=== PATIENT | female | born 1960 | race Caucasian/White ===

== ENCOUNTER → 2016-09-24 | Outpatient (CLI) | payer OTHER ==
[~2016-09-24] MED LIST: ACET325T96 PO; AMOX875T PO; BUPR-79 PO; CHLO25CA10 PO; CLON0.5T3 PO; FLUO20CA35 PO; IBUP-1050 PO; MCRK/10 PO; TRAZ100T29 PO; WELLBUTRIN PO
== END | disposition home or self-care (01) ==
LOC: C.LAB 15:09
DX: Z02.83 Encounter for blood-alcohol and blood-drug test (principal)

== ENCOUNTER 2016-10-09 21:55 | Emergency (ER) | payer OTHER ==
[~2016-10-09] VITALS: Ht 172.7 cm; Wt 72.2 kg
[~2016-10-09 21:55] MED LIST changes: -ACET325T96 PO; -AMOX875T PO; -BUPR-79 PO; -CHLO25CA10 PO; -CLON0.5T3 PO; -FLUO20CA35 PO; -IBUP-1050 PO; -MCRK/10 PO; -TRAZ100T29 PO
[2016-10-09 22:05] VITALS: TEMP 36.7; Ht 172.7 cm; Wt 72.2 kg
[2016-10-09] MEDS ORDERED: SODIUM CHLORIDE 0.9% 1000ML 1,000 ML IV STA (22:46)
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
[2016-10-09 22:55] LABS: BASO % 0.2 %; BASO ABS # 0.02 K/uL (0-0.2); COMPLETE YES; EOS % 0.6 %; HEMATOCRIT 38.8 % (37-47); IG% 0.5 %; LYMPH % 37.4 %; LYMPH ABS # 4.73 K/uL (1.2-3.4); MEAN CELL VOLUME 89.4 fL (80-100); MEAN CORPUSCULAR HEMOGLOBIN 32.3 pg (25-34); MEAN CORPUSCULAR HGB CONC 36.1 g/dl (32-36); MEAN PLATELET VOLUME 9.4 fL (7.4-10.4); MONO % 5.5 %; NEUT % 55.8 %; PLATELET COUNT 323 K/uL (130-400); RED BLOOD COUNT 4.34 M/uL (4.2-5.4); WHITE BLOOD COUNT 12.66 K/uL (4.8-10.8)
[2016-10-09] MEDS ORDERED: OPTIRAY 320 IV PRN (23:00)
[2016-10-09 23:04] LABS: ACETAMINOPHEN < 2 ug/ml (10-30)
[2016-10-09] MEDS ORDERED: IBUP-1050 PO (23:04)
[2016-10-09] MEDS ORDERED: CLON0.5T3 PO (23:04)
[2016-10-09 23:06] LABS: BUN/CREATININE RATIO 22.1 (10-20); CALCIUM 9.5 mg/dl (8.5-10.1); CREATININE 0.66 mg/dl (0.60-1.20); MAGNESIUM 1.9 mg/dl (1.8-2.4)
[2016-10-09 23:07] LABS: POTASSIUM 2.4 mmol/L (3.5-5.1)
[2016-10-09] MEDS ORDERED: POTASSIUM CHLORIDE 10 MEQ TABCR PO STA (23:29)
[2016-10-09] MEDS ORDERED: POTASSIUM CHLORIDE 10 MEQ / 100ML WTR IV STA (23:29)
[2016-10-09] MEDS ORDERED: MULTI-VITAMIN INFUSION INJ 10 ML, THIAMINE HCL INJ 100 MG, FoLIC ACID INJ 1 MG in SODIU... IV ONE (23:30)
[2016-10-09 23:47] LABS: PARTIAL THROMBOPLASTIN RATIO 0.9; PROTHROMBIN TIME (PATIENT) 10.3 SECONDS (9.0-12.0)
[2016-10-10] MEDS ORDERED: MCRK/10 PO (01:07)
[2016-10-10 01:48] LABS: URINE APPEARANCE CLEAR (CLEAR); URINE BILIRUBIN NEG (NEG); URINE COLOR YELLOW; URINE NITRITE NEG (NEG); URINE SPECIFIC GRAVITY > 1.045 (1.000-1.030); UROBILINOGEN NEG (NEG); ZZUR CULT IF INDIC CLEAN CATCH NO
[2016-10-10 01:49] LABS: MANUAL MICROSCOPIC REQUIRED? NO; REVIEW REQ? NO
[2016-10-10 02:10] LABS: BENZODIAZEPINE, URINE NEG (NEG); COCAINE,URINE NEG (NEG); PHENCYCLIDINE, URINE NEG (NEG)
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
[2016-10-10 06:29] VITALS: BP 119/81; PULSE 85; O2SAT 98
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
[2017-03-09] MEDS ORDERED: TRAZ100T29 PO (10:35)
[2017-03-09] MEDS ORDERED: FLUO20CA35 PO (10:35)
[2017-03-09] MEDS ORDERED: BUPR-79 PO (17:08)
== END 2016-10-10 06:09 | disposition home or self-care (01) ==
LOC: EDBD 21:55 → C.EDA 21:56
DX: F10.120 Alcohol abuse with intoxication, uncomplicated (principal); V87.7XXA Person injured in collision between other specified motor vehicles (traffic), initial encounter; E87.6 Hypokalemia; F32.9 Major depressive disorder, single episode, unspecified; Z87.891 Personal history of nicotine dependence; Z79.899 Other long term (current) drug therapy; Y90.8 Blood alcohol level of 240 mg/100 ml or more

== ENCOUNTER → 2016-10-09 | Outpatient (CLI) | payer OTHER | LOC: C.LAB 22:18 | DX: Z02.83 Encounter for blood-alcohol and blood-drug test (principal) ==

== ENCOUNTER 2016-10-11 15:19 | Emergency (ER) | payer BC, OTHER ==
[~2016-10-11] VITALS: Ht 172.7 cm; Wt 64.8 kg
[~2016-10-11 15:19] MED LIST changes: +CLON0.5T3 PO; +IBUP-1050 PO; +MCRK/10 PO
[2016-10-11 15:29] VITALS: Ht 172.7 cm; Wt 64.8 kg
[2016-10-11 16:11] LABS: BASO % 0.1 %; BASO ABS # 0.01 K/uL (0-0.2); COMPLETE YES; HEMATOCRIT 38.2 % (37-47); IG% 0.4 %; LYMPH % 8.6 %; LYMPH ABS # 1.42 K/uL (1.2-3.4); MEAN CELL VOLUME 91.8 fL (80-100); MEAN CORPUSCULAR HEMOGLOBIN 33.2 pg (25-34); MEAN CORPUSCULAR HGB CONC 36.1 g/dl (32-36); MEAN PLATELET VOLUME 8.9 fL (7.4-10.4); NEUT % 87.9 %; PLATELET COUNT 348 K/uL (130-400); RED BLOOD COUNT 4.16 M/uL (4.2-5.4); WHITE BLOOD COUNT 16.56 K/uL (4.8-10.8)
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
--- NOTE | 2016-10-11 16:22 | DIAGNOSTIC IMAGING REPORT ---
CHEST ONE VIEW PORTABLE CLINICAL HISTORY: intoxicated, mild low O2 COMPARISON STUDY: No previous studies for comparison. FINDINGS: The bones soft tissues and hemidiaphragms are normal. The cardiomediastinal silhouette is normal. The lungs are clear. The pulmonary vasculature is normal. IMPRESSION: Negative chest. Electronically signed by: Ramana Calloway M.D. 10/11/2016 4:20 PM Dictated Date/Time: 10/11/2016 4:19 PM
[2016-10-11 16:29] LABS: BUN/CREATININE RATIO 31.6 (10-20); CALCIUM 8.4 mg/dl (8.5-10.1); CREATININE 0.73 mg/dl (0.60-1.20); POTASSIUM 2.7 mmol/L (3.5-5.1)
[2016-10-11] MEDS ORDERED: ACETAMINOPHEN 500 MG TAB PO STA (16:35)
[2016-10-11] MEDS ORDERED: POTASSIUM CHLR 20 MEQ / WTR 40 MEQ in PREMIXED WATER 100 ML IV STA (16:38)
[2016-10-11 16:40] LABS: ALB/GLOB RATIO 0.9 (0.9-2); THYROID STIMULATING HORMONE 0.245 uIu/ml (0.300-4.500)
[2016-10-11] MEDS ORDERED: MULTI-VITAMIN INFUSION INJ 10 ML, THIAMINE HCL INJ 100 MG, FoLIC ACID INJ 1 MG in SODIU... IV ONE (16:45)
[2016-10-11] MEDS: POTASSIUM CHLR 10MEQ / WTR IV SCH ×4 (17:06→20:35)
[2016-10-11 19:45] LABS: URINE APPEARANCE CLEAR (CLEAR); URINE BILIRUBIN NEG (NEG); URINE COLOR YELLOW; URINE EPITHELIAL CELL AUTO >30 /lpf (0-5); URINE NITRITE NEG (NEG); URINE SPECIFIC GRAVITY 1.011 (1.000-1.030); UROBILINOGEN NEG (NEG); ZZUR CULT IF INDIC CLEAN CATCH NO
[2016-10-11 19:49] LABS: MANUAL MICROSCOPIC REQUIRED? NO; REVIEW REQ? NO
[2016-10-11 20:12] LABS: BENZODIAZEPINE, URINE NEG (NEG); COCAINE,URINE NEG (NEG); PHENCYCLIDINE, URINE NEG (NEG)
[2016-10-11] MEDS ORDERED: LORAZEPAM 1 MG TAB SL STA ×2 (21:16→22:04)
[2016-10-11] MEDS ORDERED: NICOTINE 14 MG/24 HR TDSY TD ONE (21:45)
[2016-10-12 00:05] LABS: HEMATOCRIT 33.6 % (37-47); MEAN CELL VOLUME 88.4 fL (80-100); MEAN CORPUSCULAR HEMOGLOBIN 32.6 pg (25-34); MEAN CORPUSCULAR HGB CONC 36.9 g/dl (32-36); MEAN PLATELET VOLUME 8.6 fL (7.4-10.4); PLATELET COUNT 257 K/uL (130-400); WHITE BLOOD COUNT 13.97 K/uL (4.8-10.8)
[2016-10-12 00:27] VITALS: TEMP 37.3
[2016-10-12] MEDS ORDERED: DIAZEPAM 5MG TAB PO STA ×2 (00:30→07:12)
[2016-10-12 00:34] LABS: CALCIUM 7.8 mg/dl (8.5-10.1); CREATININE 0.57 mg/dl (0.60-1.20); POTASSIUM 3.5 mmol/L (3.5-5.1)
[2016-10-12] MEDS ORDERED: BuPROPion SR 150 MG TABCR PO STA (07:12)
[2016-10-12] MEDS ORDERED: FLUOXETINE HCL 20 MG CAP PO ONE (07:15)
[2016-10-12 09:14] VITALS: BP 171/92; PULSE 106; O2SAT 97
--- NOTE | 2016-10-13 00:54 | EMERGENCY ROOM VISIT NOTE ---
ED Visit Note First contact with patient: 00:18 I received this patient in signout at the change of shift from Dr. Echeverria, pending mental health placement. The patient did receive several doses of oral Valium for alcohol withdrawal. When she was medically cleared, the patient was evaluated by mobile crisis and accepted to the [facility] for inpatient treatment. Secure transportation arrangements have been made and the patient will be transferred approximate 10 AM.
[2017-03-09] MEDS ORDERED: TRAZ100T29 PO (10:35)
[2017-03-09] MEDS ORDERED: FLUO20CA35 PO (10:35)
[2017-03-09] MEDS ORDERED: BUPR-79 PO (17:08)
== END 2016-10-12 09:10 ==
LOC: C.EDB 15:20 → C.EDA 10-12 09:10
DX: R45.851 Suicidal ideations (principal); F33.2 Major depressive disorder, recurrent severe without psychotic features; E87.6 Hypokalemia; F10.129 Alcohol abuse with intoxication, unspecified; F17.210 Nicotine dependence, cigarettes, uncomplicated; Z79.899 Other long term (current) drug therapy

== ENCOUNTER 2017-03-09 18:05 | Emergency (ER) | payer BC, OTHER ==
[~2017-03-09] VITALS: Ht 172.7 cm; Wt 69.1 kg
[~2017-03-09 18:05] MED LIST changes: +BUPR-79 PO; -CLON0.5T3 PO; +FLUO20CA35 PO; -IBUP-1050 PO; -MCRK/10 PO; +TRAZ100T29 PO; -WELLBUTRIN PO
[2017-03-09 18:13] VITALS: Ht 172.7 cm; Wt 69.1 kg
[2017-03-09] MEDS ORDERED: SODIUM CHLORIDE 0.9% 1000ML 1,000 ML IV STA ×2 (18:30→19:46)
[2017-03-09] MEDS ORDERED: FoLIC ACID INJ 1 MG in SYRINGE 9.8 ML IV STA (18:30)
[2017-03-09] MEDS ORDERED: ONDANSETRON INJ 2 MG/ML 2 ML VIAL IV STA (18:30)
[2017-03-09] MEDS ORDERED: THIAMINE HCL 100 MG/ML 2 ML VIAL IV STA (18:30)
--- NOTE | 2017-03-09 18:33 | EMERGENCY ROOM VISIT NOTE ---
History Report prepared by Kristina: Rodrigo Lester Under the Supervision of: Dr. John Avila M.D. First contact with patient: 18:18 Chief Complaint: DETOX REQUEST Stated Complaint: FELL HIT NOSE TUESDAY,DETOX REQUEST History of Present Illness The patient is a 56 year old white female with a past medical history of depression and alcoholism who presents to the ED with a request for alcoholic detoxification. Positive nose pain secondary to a fall two days ago and nausea with intermittent vomiting brought on by food. Negative neck pain, chest pain, shortness of breath, abdominal pain, back pain, leg pain, arm pain, melena, hematochezia, diarrhea, or urinary symptoms. The patient states that she drink 2-3 fifths of alcohol every single day. Because of this, she frequently falls. She was here two days ago secondary to a fall and was discharged with a broken nose. Her last fall was prior to coming to the hospital. Her last alcoholic drink was 1 hour ago. She currently takes Prozac and Wellbutrin. 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 She denies any suicidal ideation or homicidal ideation. Source of History: patient Onset: Currently Position: other (global) Symptom Intensity: severe Quality: other (Alcoholic Detox Request) Timing: constant Associated Symptoms: + nausea, + vomiting (intermittently with food), No neck pain, No chest pain, No SOB, No back pain, No melena, No hematochezia, No diarrhea, No urinary symptoms Note: She has nose pain secondary to a fall two days ago. Review of Systems See HPI for pertinent positives and negatives. A total of ten systems were reviewed and were otherwise negative. Past Medical & Surgical Medical Problems: (1) Depression Family History No pertinent family history Social History Smoking Status: Current Some Day Smoker Smokeless Tobacco Use: No Alcohol Use: heavy Drug Use: none Occupation Status: employed Current/Historical Medications Scheduled Amoxicillin & Pot Clavulanate (Augmentin 875-125 mg), 875 MG PO BID Bupropion (Wellbutrin Sr), 150 MG PO BID Chlordiazepoxide (Librium), 50 MG PO BLANK Fluoxetine (Prozac), 60 MG PO QAM Scheduled PRN Acetaminophen Tab (Tylenol), 650 MG PO Q6 PRN for Pain Trazodone Hcl (Trazodone), 200 MG PO HS PRN for Sleep Allergies Coded Allergies: No Known Allergies (Unverified , 10/09/16) Physical Exam Vital Signs Date Time Temp Pulse Resp B/P (MAP) Pulse Ox O2 Delivery O2 Flow Rate FiO2 03/09/17 22:22 37.3 82 18 148/93 93 03/09/17 21:34 89 18 144/82 95 Room Air 03/09/17 20:24 92 152/85 91 03/09/17 18:13 37.3 118 20 122/79 92 Room Air Physical Exam GENERAL: Awake, alert, well-appearing, NAD, intoxicated HENT: Normocephalic. EYES: Normal conjunctiva. Sclera non-icteric. Raccoon eyes without tarsal sparing. No subconjunctival hemorrhage. No hyphema. EOMI. PERRL. NECK: Supple. No nuchal rigidity. FROM. Denies any c-spine tenderness to palpation. RESPIRATORY: CTAB, no rhonchi, wheezing, crackles CARDIAC: RRR, no MRG ABDOMEN: Soft, NTND, BS+ MSK: No chest wall TTP, no tenderness to UE's, LE's, and pelvis. No other evidence of trauma. No LE edema NEURO: GCS 15, CN 2-12 intact, moves all 4s on command, 5/5 strength in bilateral UE's and LE's, no sensory deficits SKIN: No rash or jaundice noted. Medical Decision & Procedures ER Provider Diagnostic Interpretation: Radiology results as stated below per my review and radiologist interpretation: CT SCAN OF THE FACIAL BONES WITHOUT IV CONTRAST CLINICAL HISTORY: Fall with nasal injury. COMPARISON STUDY: CT of the brain performed concurrently on 03/09/2017. TECHNIQUE: High-resolution CT scan of the facial bones is performed. Images are reviewed in the axial, sagittal, and coronal planes. IV contrast was not administered for this examination. A dose lowering technique was utilized adhering to the principles of ALARA. CT DOSE: 996.63 mGy.cm FINDINGS: The skeletal structures are osteopenic. There are bilateral nondepressed nasal bone fractures with mild overlying soft tissue edema. The bony nasal septum appears intact noting mild leftward deviation. No additional facial bone fracture is identified. The bony orbits are intact and the orbital contents are within normal limits. The zygomatic arches and pterygoid plates are preserved. The maxilla and mandible are intact. There are no layering blood products within the paranasal sinuses. The sinuses and mastoids are clear. The visualized calvarium and upper cervical spine are maintained. Partially imaged brain parenchyma is within normal limits. IMPRESSION: 1. There are bilateral nondepressed nasal bone fractures. 2. No additional facial bone fracture is seen. Electronically signed by: Bryson Davison M.D. 03/09/2017 7:51 PM Dictated Date/Time: 03/09/2017 7:[address] SCAN OF THE BRAIN WITHOUT IV CONTRAST CLINICAL HISTORY: Recent falls. COMPARISON STUDY: CT of the brain dated 10/09/2016. TECHNIQUE: Unenhanced axial CT scan of the brain is performed from the vertex to the skull base. Automated dose control exposure was utilized. A dose lowering technique was utilized adhering to the principles of ALARA. FINDINGS: Brain parenchyma: The brain parenchyma is normal in appearance. There is no hemorrhage, mass effect, or evidence of acute territorial ischemia by CT criteria. Garces-white matter is preserved. No extra-axial fluid collection is seen. Ventricles, sulci, cisterns: Normal in configuration. Intracranial vasculature: The visualized intracranial vasculature at the skull base is normal in appearance. Calvarium: The skeletal structures are osteopenic. No depressed calvarial fracture is seen. Bilateral nasal bone fractures are noted. Sinuses and mastoids: The visualized paranasal sinuses are clear. The mastoid air cells are well pneumatized. Orbits: The bony orbits are grossly intact. IMPRESSION: 1. No acute intracranial abnormality. 2. Bilateral nasal bone fractures are noted. Electronically signed by: Bryson Davison M.D. 03/09/2017 7:42 PM Dictated Date/Time: 03/09/2017 7:[address] SCAN OF THE CERVICAL SPINE CLINICAL HISTORY: Recent fall. COMPARISON STUDY: CT scan of the cervical spine dated 10/09/2016. TECHNIQUE: CT scan of the cervical spine is performed from the skull base to the upper thoracic spine. Images are reviewed in the axial, sagittal, and coronal planes. IV contrast was not administered for this examination. A dose lowering technique was utilized adhering to the principles of ALARA. FINDINGS: Skeletal structures: The skeletal structures are osteopenic. There is no evidence of fracture or subluxation involving the cervical spine. Vertebral body height and alignment are maintained. The odontoid process and lateral masses are intact. The atlantoaxial articulation is preserved noting productive degenerative change. The spinous processes appear intact. Anterior osteophytes are seen in the lower cervical spine. Mild multilevel facet arthropathy is identified. Intervertebral discs: Moderate disc space narrowing is seen at C5-C6 and C6-C7. The remaining disc spaces are well maintained. Central canal: Posterior disc osteophyte complexes at C5-C6 and C6-C7 likely contribute to mild acquired compromise of the central canal. Soft tissues: The prevertebral and paraspinous soft tissues are within normal limits. Calvarium: The visualized calvarium at the skull base appears intact. Brain parenchyma: Partially visualized brain parenchyma the skull base is within normal limits. Sinuses and mastoids: The visualized paranasal sinuses are clear. The mastoid air cells are well pneumatized. Lung apices: Clear as visualized. IMPRESSION: 1. There is no evidence of fracture or subluxation involving the cervical spine. 2. Osteopenia and spondylotic change as above. Electronically signed by: Bryson Davison M.D. 03/09/2017 7:45 PM Dictated Date/Time: 03/09/2017 7:32 PM Laboratory Results 03/09/17 18:49 Red Blood Count 4.67, Mean Corpuscular Volume 91.9, Mean Corpuscular Hemoglobin 31.5, Mean Corpuscular Hemoglobin Concent 34.3, Mean Platelet Volume 8.8, Neutrophils (%) (Auto) 67.4, Lymphocytes (%) (Auto) 24.7, Monocytes (%) (Auto) 7.4, Eosinophils (%) (Auto) 0.1, Basophils (%) (Auto) 0.1, Neutrophils # (Auto) 4.67, Lymphocytes # (Auto) 1.71, Monocytes # (Auto) 0.51, Eosinophils # (Auto) 0.01, Basophils # (Auto) 0.01 03/09/17 18:49 Test 03/09/17 18:49 White Blood Count 6.93 K/uL (4.8-10.8) Red Blood Count 4.67 M/uL (4.2-5.4) Hemoglobin 14.7 g/dL (12.0-16.0) Hematocrit 42.9 % (37-47) Mean Corpuscular Volume 91.9 fL (80-100) Mean Corpuscular Hemoglobin 31.5 pg (25-34) Mean Corpuscular Hemoglobin Concent 34.3 g/dl (32-36) Platelet Count 276 K/uL (130-400) Mean Platelet Volume 8.8 fL (7.4-10.4) Neutrophils (%) (Auto) 67.4 % Lymphocytes (%) (Auto) 24.7 % Monocytes (%) (Auto) 7.4 % Eosinophils (%) (Auto) 0.1 % Basophils (%) (Auto) 0.1 % Neutrophils # (Auto) 4.67 K/uL (1.4-6.5) Lymphocytes # (Auto) 1.71 K/uL (1.2-3.4) Monocytes # (Auto) 0.51 K/uL (0.11-0.59) Eosinophils # (Auto) 0.01 K/uL (0-0.5) Basophils # (Auto) 0.01 K/uL (0-0.2) RDW Standard Deviation 48.9 fL (36.4-46.3) RDW Coefficient of Variation 14.6 % (11.5-14.5) Immature Granulocyte % (Auto) 0.3 % Immature Granulocyte # (Auto) 0.02 K/uL (0.00-0.02) Venous Blood pH 7.42 (7.36-7.41) Venous Blood Partial Pressure CO2 39 mmHg (38.0-50.0) Venous Blood Partial Pressure O2 49 mmHg Venous Blood HCO3 25 mmol/L Venous Blood Oxygen Saturation 82.3 % Venous Blood Base Excess 0.8 mEq/L Anion Gap 13.0 mmol/L (3-11) Est Creatinine Clear Calc Drug Dose 101.3 ml/min Estimated GFR () 117.3 Estimated GFR (Non- 101.2 BUN/Creatinine Ratio 22.2 (10-20) Calcium Level 8.6 mg/dl (8.5-10.1) Phosphorus Level 2.0 mg/dl (2.5-4.9) Magnesium Level 2.0 mg/dl (1.8-2.4) Ethyl Alcohol mg/dL 293.0 mg/dl (0-3) Laboratory results reviewed by me Medications Administered Medications (Trade) Dose Ordered Sig/Karina Route Start Time Stop Time Status Last Admin Dose Admin Sodium Chloride 1,000 ml @ 999 mls/hr Q1H1M STAT IV 03/09/17 18:30 03/09/17 19:30 DC 03/09/17 19:05 999 MLS/HR Folic Acid 1 mg/ Syringe 10 ml @ 5 mls/min ONE STAT IV 03/09/17 18:30 03/09/17 18:37 DC 03/09/17 19:39 5 MLS/MIN Thiamine HCl (Vitamin B-1 Inj) 100 mg NOW STAT IV 03/09/17 18:30 03/09/17 18:37 DC 03/09/17 19:04 100 MG Ondansetron HCl (Zofran Inj) 4 mg NOW STAT IV 03/09/17 18:30 03/09/17 18:37 DC 03/09/17 19:04 4 MG Acetaminophen (Tylenol Tab) 1,000 mg NOW STAT PO 03/09/17 19:44 03/09/17 19:46 DC 03/09/17 20:09 1,000 MG Sodium Chloride 1,000 ml @ 999 mls/hr Q1H1M STAT IV 03/09/17 19:46 03/09/17 20:46 DC 03/09/17 19:46 999 MLS/HR Ibuprofen (Advil Tab) 400 mg STK-MED ONCE .ROUTE 03/09/17 20:07 03/09/17 20:08 DC 03/09/17 20:07 400 MG Chlordiazepoxide (Librium Cap) 50 mg NOW ONCE PO 03/09/17 21:15 03/09/17 21:16 DC 03/09/17 21:29 50 MG ECG Indication: toxicologic Rate (beats per minute): 106 Rhythm: sinus tachycardia Findings: Q waves (Anterior), other (Normal intervals, no other STS changes or t-wave inversions) ED Course 1817: The patient was evaluated in room A12B. A complete history and physical exam was performed. 8: I will speak to mental health to evaluate the patient. 2123: Our mental health specialist evaluated the patient and deemed her safe to be discharged without concern for self-harm or the harm of others. 2155: I reevaluated the patient. Discussed results and discharge instructions: She verbalized understanding and agreement. The patient is ready for discharge. Medical Decision The patient is a 56 year old white female with a past medical history of depression and alcoholism who presents to the ED with a request for alcoholic detoxification. Positive nose pain secondary to a fall two days ago and nausea with intermittent vomiting brought on by food. Negative neck pain, chest pain, shortness of breath, abdominal pain, back pain, leg pain, arm pain, melena, hematochezia, diarrhea, or urinary symptoms. Triage Nursing notes reviewed. The patient's presentation and history were concerning for dehydration, MARCELINO, nasal fracture, ICH, c-spine fracture, and electrolyte abnormality. Patient was seen and evaluated the bedside. Patient did have concern for tone of the face. Patient was following commands. Patient obviously intoxicated. Patient was medically cleared. Patient had a negative CT head as well as C- spine and maxillofacial with exception of the nasal bone fracture. Patient had no septal hematoma was able to breathe through her nose without issue. Patient was given Librium in addition to fluids. Patient's heart rate improved. Patient was seen by our mental health specialist who deemed her fit for home and not a danger to self. Patient's sponsor did arrive to see the patient. Patient was given counseling on substance abuse abstinence and tobacco cessation. Patient intubated without difficulty and tolerated by mouth. Patient was given strict nasal bone precautions and given follow-up with ENT. Patient discharged home Medication Reconcilliation Current Medication List: was personally reviewed by me Blood Pressure Screening Patient's blood pressure: Normal blood pressure Blood pressure disposition: Did not require urgent referral Impression Primary Impression: Substance abuse Additional Impressions: Encounter for smoking cessation counseling Intoxication Nasal bone fractures Scribe Attestation The scribe's documentation has been prepared under my direction and personally reviewed by me in its entirety. I confirm that the note above accurately reflects all work, treatment, procedures, and medical decision making performed by me. Departure Information Dispostion Home / Self-Care Prescriptions Amoxicillin & Pot Clavulanate (Augmentin 875-125 mg) 1 Tab Tab 875 MG PO BID for 7 Days, #14 TAB Prov: John Avila M.D. 03/09/17 Chlordiazepoxide (Librium) 25 Mg Cap 50 MG PO BLANK, #11 CAP Please take 1 tab QID by mouth the first day, 1 tab TID day 2, 1 tab BID day 3, 1 tab day 4, 1/2 tab BID day 5 Prov: John Avila M.D. 03/09/17 Referrals No Doctor, Assigned (PCP) Harlor, Liang J, D.O. Forms WORK / SCHOOL INSTRUCTIONS, HOME CARE DOCUMENTATION FORM, IMPORTANT VISIT INFORMATION Patient Instructions Addiction Alcohol, Addiction Alcohol Signs, Alcohol Intoxication - [facility], My [facility] Additional Instructions Please return to the emergency department if you have worsening or recurrent symptoms not amenable to at-home treatment. Please call for a follow-up appointment with her primary care physician. Please take your medications as prescribed. If you have other concerns and/or complaints please feel free to also call your primary care physician's office or return the ED for further evaluation, management, and treatment. Please do not blow your nose. If you sneeze please keep her mouth open. He may apply ice packs to face. Please take your antibiotics as prescribed. Please call the ENT physician if you have problems with your broken nose. Work Instructions Return To Work: 1 day Problem Qualifiers Additional Impressions: Nasal bone fractures Encounter type: initial encounter Fracture type: closed Qualified Codes: S02.2XXA - Fracture of nasal bones, initial encounter for closed fracture
[2017-03-09 19:04] LABS: VEN BLD GAS O2 SATURATION 82.3 %; VEN BLOOD GAS BASE EXCESS 0.8 mEq/L
[2017-03-09 19:06] LABS: BASO % 0.1 %; BASO ABS # 0.01 K/uL (0-0.2); COMPLETE YES; EOS % 0.1 %; HEMATOCRIT 42.9 % (37-47); IG% 0.3 %; LYMPH % 24.7 %; LYMPH ABS # 1.71 K/uL (1.2-3.4); MEAN CELL VOLUME 91.9 fL (80-100); MEAN CORPUSCULAR HEMOGLOBIN 31.5 pg (25-34); MEAN CORPUSCULAR HGB CONC 34.3 g/dl (32-36); MEAN PLATELET VOLUME 8.8 fL (7.4-10.4); MONO % 7.4 %; NEUT % 67.4 %; PLATELET COUNT 276 K/uL (130-400); RED BLOOD COUNT 4.67 M/uL (4.2-5.4); WHITE BLOOD COUNT 6.93 K/uL (4.8-10.8)
[2017-03-09] MEDS ORDERED: ACET325T96 PO (19:18)
[2017-03-09 19:25] LABS: BUN/CREATININE RATIO 22.2 (10-20); CALCIUM 8.6 mg/dl (8.5-10.1); CREATININE 0.64 mg/dl (0.60-1.20); POTASSIUM 3.8 mmol/L (3.5-5.1)
--- NOTE | 2017-03-09 19:43 | DIAGNOSTIC IMAGING REPORT ---
CT SCAN OF THE BRAIN WITHOUT IV CONTRAST CLINICAL HISTORY: Recent falls. COMPARISON STUDY: CT of the brain dated 10/09/2016. TECHNIQUE: Unenhanced axial CT scan of the brain is performed from the vertex to the skull base. Automated dose control exposure was utilized. A dose lowering technique was utilized adhering to the principles of ALARA. FINDINGS: Brain parenchyma: The brain parenchyma is normal in appearance. There is no hemorrhage, mass effect, or evidence of acute territorial ischemia by CT criteria. Garces-white matter is preserved. No extra-axial fluid collection is seen. Ventricles, sulci, cisterns: Normal in configuration. Intracranial vasculature: The visualized intracranial vasculature at the skull base is normal in appearance. Calvarium: The skeletal structures are osteopenic. No depressed calvarial fracture is seen. Bilateral nasal bone fractures are noted. Sinuses and mastoids: The visualized paranasal sinuses are clear. The mastoid air cells are well pneumatized. Orbits: The bony orbits are grossly intact. IMPRESSION: 1. No acute intracranial abnormality. 2. Bilateral nasal bone fractures are noted. Electronically signed by: Bryson Davison M.D. 03/09/2017 7:42 PM Dictated Date/Time: 03/09/2017 7:33 PM
[2017-03-09] MEDS ORDERED: IBUPROFEN 600 MG TAB PO STA (19:44)
[2017-03-09] MEDS ORDERED: ACETAMINOPHEN 500 MG TAB PO STA (19:44)
--- NOTE | 2017-03-09 19:46 | DIAGNOSTIC IMAGING REPORT ---
CT SCAN OF THE CERVICAL SPINE CLINICAL HISTORY: Recent fall. COMPARISON STUDY: CT scan of the cervical spine dated 10/09/2016. TECHNIQUE: CT scan of the cervical spine is performed from the skull base to the upper thoracic spine. Images are reviewed in the axial, sagittal, and coronal planes. IV contrast was not administered for this examination. A dose lowering technique was utilized adhering to the principles of ALARA. FINDINGS: Skeletal structures: The skeletal structures are osteopenic. There is no evidence of fracture or subluxation involving the cervical spine. Vertebral body height and alignment are maintained. The odontoid process and lateral masses are intact. The atlantoaxial articulation is preserved noting productive degenerative change. The spinous processes appear intact. Anterior osteophytes are seen in the lower cervical spine. Mild multilevel facet arthropathy is identified. Intervertebral discs: Moderate disc space narrowing is seen at C5-C6 and C6-C7. The remaining disc spaces are well maintained. Central canal: Posterior disc osteophyte complexes at C5-C6 and C6-C7 likely contribute to mild acquired compromise of the central canal. Soft tissues: The prevertebral and paraspinous soft tissues are within normal limits. Calvarium: The visualized calvarium at the skull base appears intact. Brain parenchyma: Partially visualized brain parenchyma the skull base is within normal limits. Sinuses and mastoids: The visualized paranasal sinuses are clear. The mastoid air cells are well pneumatized. Lung apices: Clear as visualized. IMPRESSION: 1. There is no evidence of fracture or subluxation involving the cervical spine. 2. Osteopenia and spondylotic change as above. Electronically signed by: Bryson Davison M.D. 03/09/2017 7:45 PM Dictated Date/Time: 03/09/2017 7:32 PM
--- NOTE | 2017-03-09 19:53 | DIAGNOSTIC IMAGING REPORT ---
CT SCAN OF THE FACIAL BONES WITHOUT IV CONTRAST CLINICAL HISTORY: Fall with nasal injury. COMPARISON STUDY: CT of the brain performed concurrently on 03/09/2017. TECHNIQUE: High-resolution CT scan of the facial bones is performed. Images are reviewed in the axial, sagittal, and coronal planes. IV contrast was not administered for this examination. A dose lowering technique was utilized adhering to the principles of ALARA. CT DOSE: 996.63 mGy.cm FINDINGS: The skeletal structures are osteopenic. There are bilateral nondepressed nasal bone fractures with mild overlying soft tissue edema. The bony nasal septum appears intact noting mild leftward deviation. No additional facial bone fracture is identified. The bony orbits are intact and the orbital contents are within normal limits. The zygomatic arches and pterygoid plates are preserved. The maxilla and mandible are intact. There are no layering blood products within the paranasal sinuses. The sinuses and mastoids are clear. The visualized calvarium and upper cervical spine are maintained. Partially imaged brain parenchyma is within normal limits. IMPRESSION: 1. There are bilateral nondepressed nasal bone fractures. 2. No additional facial bone fracture is seen. Electronically signed by: Bryson Davison M.D. 03/09/2017 7:51 PM Dictated Date/Time: 03/09/2017 7:48 PM
[2017-03-09] MEDS ORDERED: IBUPROFEN 200 MG TAB ONE (20:07)
[2017-03-09] MEDS ORDERED: CHLORDIAZEPOXIDE 25 MG CAP PO ONE (21:15)
[2017-03-09] MEDS ORDERED: CHLO25CA10 PO (21:52)
[2017-03-09] MEDS ORDERED: AMOX875T PO (21:54)
[2017-03-09 22:22] VITALS: BP 148/93; PULSE 82; TEMP 37.3; O2SAT 93
--- NOTE | 2017-03-10 12:33 | Pharmacy Progress Note ---
ED Pharmacist Progress Note Date of Service: Mar 10, 2017. Received call from Smith Aldrich requesting clarification on chlordiazepoxide prescription - dose listed as 50 mg, but 25 mg caps selected as produced and SIG noted to take "1 tab" - unsure if intended initial dose was therefore 50 mg or [address]. [address] Drew - intended dose is 50 mg, but 50 mg caps/tabs are not available. Therefore will substitute with 25 mg caps and adjust SIG/quantity dispensed accordingly. Final prescription VORB to Smith Aldrich (Justin) as follows: Chlordiazepoxide 25 mg cap #22 2 caps po QID, day 1 2 caps po TID, day 2 2 cap po BID, day 3 2 cap po ONCE, day 4 1 cap po BID, day 5 Requested that patient be counseled on the above changes when she arrives to [facility] the prescription as the clarified instructions (above) will differ from her discharge paperwork that she received upon leaving the ED.
== END 2017-03-09 22:23 | disposition home or self-care (01) ==
LOC: C.EDB 18:06 → C.EDA 22:23
DX: Z00.00 Encounter for general adult medical examination without abnormal findings (principal); F19.129 Other psychoactive substance abuse with intoxication, unspecified; F10.129 Alcohol abuse with intoxication, unspecified; S02.2XXA Fracture of nasal bones, initial encounter for closed fracture; W19.XXXA Unspecified fall, initial encounter; F32.9 Major depressive disorder, single episode, unspecified; Z79.899 Other long term (current) drug therapy

== ENCOUNTER 2017-05-14 12:39 | Emergency (ER) | payer OTHER ==
[~2017-05-14] VITALS: Ht 172.7 cm; Wt 68.0 kg
[~2017-05-14 12:39] MED LIST changes: +ACET325T96 PO; +CHLO25CA10 PO
[2017-05-14 12:43] VITALS: TEMP 36.7; Ht 172.7 cm; Wt 68.0 kg
[2017-05-14] MEDS ORDERED: IBUPROFEN 600 MG TAB PO STA (13:09)
[2017-05-14] MEDS ORDERED: NALT380I INJ (13:12)
[2017-05-14] MEDS ORDERED: HYDROCODONE/ACETAMOPHEN 5/325MG TAB PO ONE (13:15)
--- NOTE | 2017-05-14 14:05 | DIAGNOSTIC IMAGING REPORT ---
R FOOT MIN 3 VIEWS ROUTINE CLINICAL HISTORY: Fall. Right foot pain near 4th/5th toes trauma COMPARISON: None. DISCUSSION: Fracture base proximal phalanx fifth and possibly fourth toe. Mild degenerative change of all remaining osseous structures. No evidence for dislocation. Mild soft tissue edema. IMPRESSION: Transverse fracture base proximal phalanx fifth and possibly fourth toe. No evidence of dislocation. Moderate soft tissue edema. The above report was generated using voice recognition software. It may contain grammatical, syntax or spelling errors. Electronically signed by: Ramana Calloway M.D. 05/14/2017 2:03 PM Dictated Date/Time: 05/14/2017 2:02 PM
--- NOTE | 2017-05-14 14:06 | DIAGNOSTIC IMAGING REPORT ---
R HAND MIN 3 VIEWS ROUTINE CLINICAL HISTORY: Fall. Right hand injury. S/P 4th finger reduction. Trauma. Pain. COMPARISON: None. DISCUSSION: The bones and joint spaces appear intact. There is no evidence of fracture, dislocation or bony disease. There is no evidence for soft tissue swelling. IMPRESSION: Negative study. The above report was generated using voice recognition software. It may contain grammatical, syntax or spelling errors. Electronically signed by: Ramana Calloway M.D. 05/14/2017 2:04 PM Dictated Date/Time: 05/14/2017 2:04 PM
--- NOTE | 2017-05-14 14:08 | DIAGNOSTIC IMAGING REPORT ---
L PELVIS/UNILATERAL HIP 2-3VIEWS CLINICAL HISTORY: Fall. Left hip pain trauma. Pain. COMPARISON: None. DISCUSSION: The bones and joint spaces appear intact. There is no evidence of fracture, dislocation or bony disease. There is no evidence for soft tissue swelling. IMPRESSION: Negative study. The above report was generated using voice recognition software. It may contain grammatical, syntax or spelling errors. Electronically signed by: Ramana Calloway M.D. 05/14/2017 2:06 PM Dictated Date/Time: 05/14/2017 2:06 PM
[2017-05-14 14:40] VITALS: BP 163/85; PULSE 77; O2SAT 95
--- NOTE | 2017-05-14 14:43 | EMERGENCY ROOM VISIT NOTE ---
History First contact with patient: 13:03 Chief Complaint: FALL Stated Complaint: HEAD/FINGER/TOE INJURY FR FALL History of Present Illness The patient is a 56 year old female who presents to the Emergency Room with complaints of pain of her right hand, right foot, and left hip after falling about one hour ago. The patient is currently incarcerated at [facility], and was climbing down from the top bunk of the bed. The patient slipped, and evidently fell around 4 feet. She did not strike her head or lose consciousness. She rates her discomfort a 9/10 primarily of the right hand. The patient is not experiencing lightheadedness, dizziness, neck pain, chest pain, chest tightness , shortness of breath, or abdominal pain. She does not report blood or bleeding. She is not on blood thinners. Review of Systems More than 10 systems were reviewed and otherwise negative with the exception of history of present illness. Past Medical/Surgical History Medical Problems: (1) Depression Family History No pertinent family history Social History Smoking Status: Current Every Day Smoker Alcohol Use: heavy Drug Use: none Occupation Status: employed Current/Historical Medications Scheduled Bupropion (Wellbutrin Sr), 150 MG PO BID Fluoxetine (Prozac), 60 MG PO QAM Naltrexone (Vivitrol), 1 DOSE INJ MONTHLY Scheduled PRN Acetaminophen Tab (Tylenol), 650 MG PO Q6 PRN for Pain Trazodone Hcl (Trazodone), 200 MG PO HS PRN for Sleep Physical Exam Vital Signs Date Time Temp Pulse Resp B/P (MAP) Pulse Ox O2 Delivery O2 Flow Rate FiO2 05/14/17 12:43 36.7 76 16 126/84 95 Room Air Physical Exam VITALS: Vitals are noted on the nurse's note and reviewed by myself. Vital signs stable. GENERAL: Well-developed, well-nourished, white female who appears mildly uncomfortable but nontoxic. Patient is cooperative with the examination. HEAD: Normocephalic atraumatic. EARS: External ear normal. External auditory canals clear, tympanic membranes pearly mcfarlane without erythema or effusion bilaterally. EYES: Pupils equal round and reactive to light and accommodation. Conjunctivae without injection, sclerae without icterus. Extraocular movements intact. NOSE: Patent, turbinates without inflammation or discharge. MOUTH: Mucous membranes moist. Tonsils are not enlarged. Pharynx without erythema, blood, or exudate. Uvula midline. Airway patent. NECK: Supple without nuchal rigidity. No lymphadenopathy. No thyromegaly. Cervical spine is nontender. HEART: Regular rate and rhythm without murmurs gallops or rubs. LUNGS: Clear to auscultation bilaterally without wheezes, rales or rhonchi. No retractions or accessory muscle use. ABDOMEN: Positive normal bowel sounds x 4. Soft, nontender, without masses or organomegaly. No guarding or rebound tenderness. MUSCULOSKELETAL: No significant tenderness throughout the lumbar spine. There is mild tenderness across the left hip without loss of range of motion. Her vascular status is intact to all distal extremities. The right hand is tender over the fourth digit that appears dorsally dislocated at the PIP joint. This appears to be a closed dislocation. Additionally there is tenderness of the patient's of the right fifth toe. No significant tenderness of the fourth toe is noted. There is some mild tenderness of the remaining foot. No other significant musculoskeletal injuries are noted. NEURO: Patient was alert and oriented to person place and time. CN II through XII grossly intact. Deep tendon reflexes 2+ throughout. Medical Decision & Procedures ER Provider Diagnostic Interpretation: L PELVIS/UNILATERAL HIP 2-3VIEWS CLINICAL HISTORY: Fall. Left hip pain trauma. Pain. COMPARISON: None. DISCUSSION: The bones and joint spaces appear intact. There is no evidence of fracture, dislocation or bony disease. There is no evidence for soft tissue swelling. IMPRESSION: Negative study. R HAND MIN 3 VIEWS ROUTINE CLINICAL HISTORY: Fall. Right hand injury. S/P 4th finger reduction. Trauma. Pain. COMPARISON: None. DISCUSSION: The bones and joint spaces appear intact. There is no evidence of fracture, dislocation or bony disease. There is no evidence for soft tissue swelling. IMPRESSION: Negative study. R FOOT MIN 3 VIEWS ROUTINE CLINICAL HISTORY: Fall. Right foot pain near 4th/5th toes trauma COMPARISON: None. DISCUSSION: Fracture base proximal phalanx fifth and possibly fourth toe. Mild degenerative change of all remaining osseous structures. No evidence for dislocation. Mild soft tissue edema. IMPRESSION: Transverse fracture base proximal phalanx fifth and possibly fourth toe. No evidence of dislocation. Moderate soft tissue edema. Medications Administered Medications (Trade) Dose Ordered Sig/Karina Route Start Time Stop Time Status Last Admin Dose Admin Ibuprofen (Motrin Tab) 600 mg NOW STAT PO 05/14/17 13:09 05/14/17 13:12 DC 05/14/17 13:25 600 MG Acetaminophen/ Hydrocodone Bitart ([place] 5/325 Tab) 1 tab NOW ONCE PO 05/14/17 13:15 05/14/17 13:16 DC 05/14/17 13:25 1 TAB Procedure Finger reduction: Verbal consent was obtained to perform the procedure. The joint was reduced by applying a steady and rapid axial distraction of the dislocated portion at the pip joint while the proximal portion was stabilized with the other hand. Following this motion of the joint was normal and full and the patient could move it normally also. Neurovascular status was rechecked and intact. ED Course Physical exam and history were performed. Nursing notes, EMR, and Medication List were personally reviewed. Patient appears to have fallen from her bunk in senior living causing multiple injuries. On examination the patient appears uncomfortable, however her discomfort is essentially limited to her right hand, left hip, and right foot. She does have an obvious dislocation of the right fourth finger, and this was reduced without difficulty as described above. X-rays were obtained and the patient was given ibuprofen and Vicodin here in the department. The patient's x-rays are as above. She does not have fracture of the hip. There is no fracture of the hand or fingers appreciated. She does have a fracture of the right fifth toe with questionable fourth toe involvement. The patient does not have significant tenderness in the fourth toe and she was raimundo taped for comfort. Overall the patient appears well for discharge back to senior living. She is to follow with the [facility] and the appropriate lan specialist for further care and management. She was otherwise invited back to the ER with any new, worsening, or concerning symptoms. The chart was completed utilizing [employer] Speech Voice Recognition Software. Grammatical errors, random word insertions, pronoun errors, and incomplete sentences are an occasional consequence of this system due to software limitations, ambient noise, and hardware issues. Any formal questions or concerns about the content, text, or information contained within the body of this dictation should be directly addressed to the provider for clarification. . Medical Decision Differential diagnosis includes, but is not limited to: Mechanical fall, sprain , strain, fracture, dislocation, subluxation, contusion, and others Medication Reconcilliation Current Medication List: was personally reviewed by me Blood Pressure Screening Patient's blood pressure: Normal blood pressure Impression Primary Impression: Fall Additional Impressions: Broken toe Dislocation, finger closed Contusion of multiple sites Departure Information Dispostion Other Condition GOOD Forms HOME CARE DOCUMENTATION FORM, IMPORTANT VISIT INFORMATION Patient Instructions My [facility] Additional Instructions You were seen and evaluated today on an emergency basis only. This is not a substitute for, or an effort to provide, complete comprehensive medical care. It is not possible to recognize and treat all injuries or illnesses in a single emergency department visit. For this reason it is recommended that you followup with [facility] for ongoing care and evaluation. We do recommend that you have orthopedic follow-up regarding your broken toe. For baseline pain relief you may alternate ibuprofen and acetaminophen every 4 hours for pain control. Take 600 mg ibuprofen (Advil) and then 4 hours later take 1000 mg acetaminophen (Tylenol). Do not take more than 3000 mg acetaminophen in a single day. Continue to raimundo tape the fourth and fifth toes on the right foot. You are welcome to return to the emergency department anytime with new, worsening, or concerning symptoms. Problem Qualifiers
== END 2017-05-14 14:42 | disposition home or self-care (01) ==
LOC: C.EDB 12:43 → C.EDD 14:42
DX: S92.919A Unspecified fracture of unspecified toe(s), initial encounter for closed fracture (principal); S63.274A Dislocation of unspecified interphalangeal joint of right ring finger, initial encounter; T14.8XXA Other injury of unspecified body region, initial encounter; W19.XXXA Unspecified fall, initial encounter; F32.9 Major depressive disorder, single episode, unspecified; F17.200 Nicotine dependence, unspecified, uncomplicated